=== PATIENT | male | born 1930 ===

== ENCOUNTER 2017-01-23 17:48 | Inpatient (IN) | payer OTHER ==
[~2017-01-23] VITALS: Ht 190.5 cm; Wt 93.5 kg
[2017-01-23 19:05] LABS: BASOPHIL % 0 % (0-2); PLATELET COUNT 171 x10^3mcL (130-400); RED CELL DISTRIBUTION WIDTH 15.3 % (11.5-14.5)
[2017-01-23 19:05] LABS: microscopic required? YES; urine erythrocyte NEGATIVE (NEGATIVE)
[2017-01-23 19:13] LABS: ALBUMIN 2.2 g/dL (3.4-5.0); ALKALINE PHOSPHATASE 100 U/L (46-116); ALT/SGPT 49 U/L (16-63); AST/SGOT 45 U/L (15-37); BILIRUBIN TOTAL 1.76 mg/dL (0.20-1.00); CALCIUM 8.8 mg/dL (8.5-10.1); CARBON DIOXIDE 26.4 mmol/L (21-32); CHLORIDE SERUM 126 mmol/L (98-107); CREATININE SERUM 1.5 mg/dL (0.7-1.3); GLUCOSE SERUM 146 mg/dL (74-106); POTASSIUM SERUM 3.8 mmol/L (3.5-5.1); TOTAL PROTEIN, SERUM 6.4 g/dL (6.4-8.2)
[2017-01-23 19:15] LABS: SODIUM SERUM 165 mmol/L (136-145)
[2017-01-23] MEDS ORDERED: CITALOPRAM HYDR20 M1 PO (19:36)
[2017-01-23] MEDS ORDERED: XANAX0.5 MG PO (19:37)
[2017-01-23] MEDS ORDERED: MOT600 PO (19:38)
[2017-01-23] MEDS ORDERED: TYLENOL PM EX-1 EACH PO (19:40)
[2017-01-23] MEDS ORDERED: ECOTRIN81 M2 PO (19:40)
[2017-01-23] MEDS ORDERED: TYLENOL325 M1 PO (19:40)
[2017-01-23] MEDS ORDERED: VITAMIN-D1000 IU PO (19:41)
[2017-01-23] MEDS ORDERED: OLANZAPINE5 M2 PO ×2 (19:42→19:49)
[2017-01-23] MEDS ORDERED: ATRUD INH (19:42)
[2017-01-23] MEDS ORDERED: DAIRY DIGES9000 UNI1 PO (19:42)
[2017-01-23] MEDS ORDERED: ATROVENT HHN (19:55)
[2017-01-23 21:13] VITALS: BP 103/69
[2017-01-23 21:39] LABS: T3 TOTAL 0.61 ng/mL
[2017-01-23 21:41] LABS: MAGNESIUM 2.2 mg/dL (1.8-2.4); PHOSPHOROUS 3.5 mg/dL (2.5-4.9)
[2017-01-23 21:43] LABS: CHOLESTEROL/HDL RATIO 4.2
[2017-01-23 21:45] LABS: FREE T4 1.13 ng/dL (0.76-1.46); FREE THYROXINE INDEX 2.1 ug/dL (1.4-4.5); T4(THYROXINE) 5.8 ug/dL (4.7-13.3)
[2017-01-24 06:20] VITALS: BP 120/70
[2017-01-24 07:26] LABS: CALCIUM 8.3 mg/dL (8.5-10.1); CARBON DIOXIDE 27.7 mmol/L (21-32); CHLORIDE SERUM 125 mmol/L (98-107); CREATININE SERUM 1.1 mg/dL (0.7-1.3); GLUCOSE SERUM 145 mg/dL (74-106); MAGNESIUM 2.2 mg/dL (1.8-2.4); PHOSPHOROUS 3.7 mg/dL (2.5-4.9)
[2017-01-24 07:30] LABS: SODIUM SERUM 163 mmol/L (136-145)
[2017-01-24 08:08] LABS: PLATELET COUNT 151 x10^3mcL (130-400)
[2017-01-24 08:10] LABS: RED CELL DISTRIBUTION WIDTH 15.2 % (11.5-14.5)
[2017-01-24 09:52] VITALS: BP 116/80
[2017-01-24 10:07] LABS: BAND NEUTROPHIL 5 % (0-10); BASOPHIL 0 % (0-2); MONOCYTE 4 % (0-7); SEGMENTED NEUTROPHILS 89 % (37-75)
[2017-01-24 14:37] VITALS: BP 138/91
[2017-01-24 15:42] VITALS: BP 138/91
[2017-01-24 17:28] LABS: CALCIUM 8.7 mg/dL (8.5-10.1); CARBON DIOXIDE 29.7 mmol/L (21-32); CHLORIDE SERUM 129 mmol/L (98-107); CREATININE SERUM 1.1 mg/dL (0.7-1.3); GLUCOSE SERUM 133 mg/dL (74-106); MAGNESIUM 2.3 mg/dL (1.8-2.4); PHOSPHOROUS 3.9 mg/dL (2.5-4.9)
[2017-01-24 17:31] LABS: SODIUM SERUM 165 mmol/L (136-145)
[2017-01-24 18:05] VITALS: BP 129/74
[2017-01-24 22:04] VITALS: BP 137/64
[2017-01-24 22:29] LABS: CALCIUM 8.7 mg/dL (8.5-10.1); CARBON DIOXIDE 28.1 mmol/L (21-32); CHLORIDE SERUM 129 mmol/L (98-107); CREATININE SERUM 1.3 mg/dL (0.7-1.3); GLUCOSE SERUM 144 mg/dL (74-106)
[2017-01-24 22:57] LABS: POTASSIUM SERUM 4.1 mmol/L (3.5-5.1); SODIUM SERUM 166 mmol/L (136-145)
[2017-01-25 06:15] VITALS: BP 144/78
[2017-01-25 07:16] LABS: BASOPHIL % 0.1 % (0-2); PLATELET COUNT 172 x10^3mcL (130-400)
[2017-01-25 07:17] LABS: RED CELL DISTRIBUTION WIDTH 15.5 % (11.5-14.5)
[2017-01-25 07:49] LABS: CALCIUM 8.5 mg/dL (8.5-10.1); CARBON DIOXIDE 29.1 mmol/L (21-32); CHLORIDE SERUM 125 mmol/L (98-107); CREATININE SERUM 1.3 mg/dL (0.7-1.3); GLUCOSE SERUM 127 mg/dL (74-106); MAGNESIUM 2.1 mg/dL (1.8-2.4); PHOSPHOROUS 3.1 mg/dL (2.5-4.9); POTASSIUM SERUM 3.5 mmol/L (3.5-5.1)
[2017-01-25 07:56] LABS: SODIUM SERUM 165 mmol/L (136-145)
[2017-01-25 10:00] VITALS: BP 113/69
[2017-01-25 17:29] VITALS: BP 124/72
[2017-01-25 18:05] VITALS: Ht 190.5 cm; Wt 93.5 kg
[2017-01-25 21:56] VITALS: BP 130/58
[2017-01-26 06:10] VITALS: BP 155/96
[2017-01-26 06:47] LABS: CALCIUM 8.5 mg/dL (8.5-10.1); CARBON DIOXIDE 28.4 mmol/L (21-32); CHLORIDE SERUM 120 mmol/L (98-107); CREATININE SERUM 1.2 mg/dL (0.7-1.3); GLUCOSE SERUM 112 mg/dL (74-106); POTASSIUM SERUM 3.3 mmol/L (3.5-5.1)
[2017-01-26 06:48] LABS: SODIUM SERUM 161 mmol/L (136-145)
[2017-01-26 10:22] VITALS: BP 106/60
[2017-01-26 16:35] LABS: CALCIUM 8.3 mg/dL (8.5-10.1); CARBON DIOXIDE 27.4 mmol/L (21-32); CHLORIDE SERUM 119 mmol/L (98-107); CREATININE SERUM 1.2 mg/dL (0.7-1.3); GLUCOSE SERUM 139 mg/dL (74-106); MAGNESIUM 1.9 mg/dL (1.8-2.4); SODIUM SERUM 158 mmol/L (136-145)
[2017-01-26 16:38] LABS: POTASSIUM SERUM 2.9 mmol/L (3.5-5.1)
[2017-01-26 17:39] VITALS: BP 135/87
[2017-01-26 22:32] VITALS: BP 133/81
[2017-01-26 23:25] LABS: UA SPECIFIC GRAVITY 1.025 (1.005-1.035); microscopic required? YES; urine erythrocyte 2+ (NEGATIVE)
[2017-01-27 07:03] VITALS: BP 150/89
[2017-01-27 08:30] VITALS: BP 150/89
[2017-01-27] MEDS ORDERED: NOVAPLUS LEVOF150 ML IV (11:24)
[2017-01-27] MEDS ORDERED: NOVAPLUS CLINDA1 SO1 IV (11:25)
[2017-01-27] MEDS ORDERED: IPRATROPIUM BROM3 M2 HHN (11:26)
[2017-01-27] MEDS ORDERED: ACIDOPHILUS LA1 EACH PO (11:28)
[2017-01-27] MEDS ORDERED: KEN025C TOP (11:29)
[2017-01-27 13:05] LABS: BASOPHIL % 0.2 % (0-2); PLATELET COUNT 174 x10^3mcL (130-400)
[2017-01-27 13:16] LABS: RED CELL DISTRIBUTION WIDTH 15.2 % (11.5-14.5)
[2017-01-27 13:33] LABS: CALCIUM 8.6 mg/dL (8.5-10.1); CARBON DIOXIDE 29.2 mmol/L (21-32); CHLORIDE SERUM 110 mmol/L (98-107); CREATININE SERUM 1.1 mg/dL (0.7-1.3); GLUCOSE SERUM 185 mg/dL (74-106); POTASSIUM SERUM 3.3 mmol/L (3.5-5.1); SODIUM SERUM 155 mmol/L (136-145)
[2017-01-27] MEDS ORDERED: [UNRECOGNIZED DRUG - CODE] IV ×2 (14:39→14:40)
[2017-01-27 17:07] VITALS: BP 141/81
== END 2017-01-27 18:32 | DRG 871 ==
LOC: ED 17:48 → DU 19:45 → MU 01-25 12:51
PROVIDERS: Emergency Medicine; Family Medicine; Internal Medicine Cardiovascular Disease; ADMIT Student in an Organized Health Care Education/Training Program
DX: A41.9 Sepsis, unspecified organism (principal); G93.41 Metabolic encephalopathy; J69.0 Pneumonitis due to inhalation of food and vomit; N17.0 Acute kidney failure with tubular necrosis; E43 Unspecified severe protein-calorie malnutrition; I50.43 Acute on chronic combined systolic (congestive) and diastolic (congestive) heart failure; N39.0 Urinary tract infection, site not specified; E87.0 Hyperosmolality and hypernatremia; M48.56XA Collapsed vertebra, not elsewhere classified, lumbar region, initial encounter for fracture; I11.0 Hypertensive heart disease with heart failure; I48.2 Chronic atrial fibrillation; R65.20 Severe sepsis without septic shock; S72.012D Unspecified intracapsular fracture of left femur, subsequent encounter for closed fracture with routine healing; G30.9 Alzheimer's disease, unspecified; F02.80 Dementia in other diseases classified elsewhere, unspecified severity, without behavioral disturbance, psychotic disturbance, mood disturbance, and anxiety; R73.03 Prediabetes; Z68.25 Body mass index [BMI] 25.0-25.9, adult; Z85.72 Personal history of non-Hodgkin lymphomas; Z92.21 Personal history of antineoplastic chemotherapy; Z86.73 Personal history of transient ischemic attack (TIA), and cerebral infarction without residual deficits; Z79.82 Long term (current) use of aspirin; Z66 Do not resuscitate; W19.XXXD Unspecified fall, subsequent encounter
CPT/HCPCS: 82962; 83880; 84439; 92610; 92610-GN; J1170; J1644; J1885; J1956; J3480; J3490; J7030; J7070; J7620; Q0092